=== PATIENT | female | born 1960 | race Caucasian/White ===

== ENCOUNTER 2019-10-31 15:10 | Outpatient (CLI) | payer BC, SELFPAY ==
--- NOTE | ~2019-10-31 | XR_ITS ---
EXAMINATION: XR hand BI arthritis min 3V EXAM DATE: 10/31/2019 15:49 INDICATION: Hand pain. Arthritis. TECHNIQUE: Right hand frontal, lateral and oblique projections obtained and reviewed. Left hand fron queta, lateral and oblique projections obtained and reviewed. Catchers projection of both hands. There is no prior study for comparison. FINDINGS: Right hand: The joint spaces are uniform, and symmetric to the contralateral side. There are no bony erosions identified. There are no acute fractures or dislocations identified. There is no subcutaneo us gas. The soft tissue is unremarkable. There are no radiopaque foreign bodies. Left hand: The joint spaces are uniform and symmetric to the contralateral side. There are no bony er osions identified. There are no acute fractures or dislocations identified. There is no subcutaneous gas. The soft tissue is unremarkable. There are no radiopaque foreign bodies. IMPRESSION: 1. Unremarkable hand exam. Reviewed, dictated and finalized at location A. IMPRESSION: 1. Unremarkable hand exam.
--- NOTE | ~2019-10-31 | XR_ITS ---
EXAMINATION: XR foot LT standing 2V DATE: 10/31/2019 15:49 INDICATION: Unspecified osteoarthritis, unspecified site. TECHNIQUE: 2 views of left foot standing were obtained. COMPARISON: None. FINDINGS: There is moderate hallux valgus. No fracture. There is mild osteoarthritis of first metatar sophalangeal joint and third distal interphalangeal joint. IMPRESSION: 1. Moderate hallux valgus. 2. Mild polyarticular osteoarthritis. Reviewed, dictated and finalized at location B.
--- NOTE | ~2019-10-31 | XR_ITS ---
EXAMINATION: XR foot RT standing 2V EXAM DATE: 10/31/2019 15:49 INDICATION: Arthritis. TECHNIQUE: Frontal and lateral projections of the right foot. There is no prior study for compariso n. FINDINGS: There are no acute right foot fractures or dislocations identified. There is no subcutaneo us gas. The soft tissue is unremarkable. Fibular hardware. There are no bony erosions identified. IMPRESSION: 1. Unremarkable right foot exam. Reviewed, dictated and finalized at location A.
--- NOTE | ~2019-10-31 | XR_ITS ---
XR ankle RT min 3V DATE: 10/31/2019 15:49 INDICATION: Osteoarthritis. Right ankle pain. TECHNIQUE: 4 views COMPARISON: None FINDINGS: There is a plate and screws along the distal fibula. No fracture or dislocation of the ankle or disruption of the ankle mortise. The tibiotalar joint appe ars well preserved. IMPRESSION: Prior ORIF lateral malleolus Reviewed, dictated and finalized at location A.
--- NOTE | ~2019-10-31 | XR_ITS ---
EXAMINATION: XR ankle LT min 3V DATE: 10/31/2019 15:49 INDICATION: Unspecified osteoarthritis, unspecified site. TECHNIQUE: 4 views of left ankle were obtained. COMPARISON: None. FINDINGS: Bone alignment is normal. No fracture. Joint spaces are well maintained. There is ankle sof t tissue swelling. IMPRESSION: 1. No arthritis. Reviewed, dictated and finalized at location B. IMPRESSION: 1. No arthritis.
[2019-10-31 17:17] LABS: Basophils Absolute Auto 0.1 K/mm3 (0.0-0.1); Basophils Percent Auto 0.9 % (0.2-1.2); Eosinophils Absolute Auto 0.6 K/mm3 (0-0.3); Eosinophils Percent Auto 7.5 % (0-4.4); Hematocrit 39.7 % (37.0-47.0); Hemoglobin 13.4 g/dL (12.0-15.0); Immature Granulocyte Absolute 0.02 K/mm3 (0.00-0.031); Immature Granulocyte Percent A 0.2 % (0-0.5); Lymphocytes Absolute Auto 2.44 K/mm3 (0.9-3.2); Lymphocytes Percent Auto 28.6 % (18.3-44.2); Mean Corpuscular HGB Conc 33.8 g/dl (32-36); Mean Corpuscular Hemoglobin 30.9 pg (26-34); Mean Corpuscular Volume 91.5 fl (80-100); Mean Platelet Volume 9.2 fl (7.4-10.4); Monocytes Absolute Auto 0.5 K/mm3 (0.1-0.6); Monocytes Percent Auto 6.1 % (2.6-8.5); Neutrophils Absolute Auto 4.8 K/mm3 (1.3-6.7); Neutrophils Percent Auto 56.7 % (45.5-73.1); Platelet Count Result 217 k/mm3 (150-375); Red Blood Count 4.34 M/mm3 (4.2-5.4); Red Cell Distribution Width 11.9 % (11.5-14.5); White Blood Count 8.5 K/mm3 (4.5-10.0)
[2019-10-31 17:19] LABS: Add Urine Microscopic? YES; Appearance Urine Clear (Clear); Bilirubin Urine Negative (Negative); Blood Urine 1+ (Negative); Color Urine Straw (Yellow); Glucose Urine UA Negative (Negative); Ketones Urine Negative (Negative); Leukocyte Esterase Ur Negative LEU/UL (Negative); Nitrate Urine Negative (Negative); Protein Urine Negative (Negative); Specific Grav Ur 1.013 (1.001-1.035); Squamous Epithelial Cell Urine Occasional /hpf (Few); Urobilinogen Urine Negative mg/dL (<2.0); WBC Urine 0-3 /hpf
[2019-10-31 17:57] LABS: Rheumatoid Factor < 8.6 IU/ML (<12)
[2019-10-31 18:03] LABS: Erythrocyte Sedimentation Rate 13 mm/hr (0-20)
[2019-10-31 18:13] LABS: Hepatitis B Surface Antigen Negative (Negative)
[2019-10-31 18:27] LABS: Alanine Aminotransferase 17 U/L (4-35); Albumin Level 4.6 g/dL (3.5-5.1); Alkaline Phosphatase 59 U/L (38-126); Anion Gap 8 mmol/L (8-16); Aspartate Amino Transferase 29 U/L (14-36); Bilirubin,Total 0.3 mg/dL (0.2-1.3); Blood Urea Nitrogen 14 mg/dL (7-17); CRP < 0.5 mg/dL (<1.0); Calcium 9.6 mg/dL (8.4-10.2); Carbon Dioxide 26 mmol/L (22-30); Chloride 107 mmol/L (98-107); Estimated Glomerular Filt Rate > 60; Glucose 95 mg/dL (65-105); Potassium 4.5 mmol/L (3.4-5.0); Sodium 141 mmol/L (137-145)
[2019-10-31 19:03] LABS: Hepatitis B Surface Anti Res Positive; Hepatitis C Virus Antibody Negative (Negative)
[2019-11-02 08:26] LABS: Anti Cyclic Citrullinated Pept <16 Units (<20)
[2019-11-03 03:52] LABS: Angiotensin Converting Enzyme 96 U/L (9-67)
[2019-11-04 22:29] LABS: NIL 0.01 IU/mL; Quantiferon TB Plus, 1T NEGATIVE (NEGATIVE)
[2019-11-05 06:47] LABS: Hepatitis B Core Ab Total Nonreactive (Nonreactive)
== END 2019-10-31 15:11 | disposition home or self-care (01) ==
PROVIDERS: PCP Internal Medicine; Visit Provider Internal Medicine
DX: M19.90 Unspecified osteoarthritis, unspecified site (principal); M19.072 Primary osteoarthritis, left ankle and foot; M20.12 Hallux valgus (acquired), left foot
CPT/HCPCS: 36415; 73130; 73610; 73620; 80053; 81001; 82164; 84550; 85025; 85652; 86140; 86200; 86430; 86480; 86666; 86698; 86704; 86706; 86803; 87340; 87801